=== PATIENT | male | born 2000 | race Caucasian/White ===

== ENCOUNTER → 2023-11-10 | Outpatient (CLI) | payer OTHER ==
--- NOTE | 2023-11-12 10:10 | US ---
EXAMINATION TYPE: US scrotum with doppler. Grayscale and color Doppler Duplex imaging performed of joão he scrotum. DATE OF EXAM: 11/10/2023 COMPARISON: NONE CLINICAL INDICATION: Male, 23 years old with history of N50.819 TESTICULAR PAIN, UNSPECIFI; Right issa in pain x 2 weeks; Patient denies any other signs or symptoms or relevant history. EXAM MEASUREMENTS: TESTICLES: Right Testicle: 4.4 x 1.8 x 2.9 cm Left Testicle: 4.7 x 2.1 x 3.3 cm EPIDIDYMIS HEAD: Right Epididymis: 1.2 cm Left Epididymis: 1.0 cm Doppler performed to assess for testicular vascularity; good bilateral color flow and waveforms are s een. There is no evidence of testicular torsion. Presence of hydroceles: No Presence of varicoceles: No Right inguinal area scanned due to patients concern - heterogenous striated tubular structure seen ex tending from patients palp to superior testicle / epididymal area. IMPRESSION: 1. Heterogenous striated structure in the region of the right inguinal region extending to the patien t's area of palpable concern is nonspecific. Consider CT correlation.
== END | disposition home or self-care (01) ==
LOC: RADUSWWP 12:23
PROVIDERS: ATTEND Family Medicine
DX: N50.819 Testicular pain, unspecified (principal)
CPT/HCPCS: 76870; 93975

== ENCOUNTER → 2023-11-26 | Outpatient (CLI) | payer OTHER ==
--- NOTE | 2023-11-26 23:01 | CT ---
EXAMINATION TYPE: CT pelvis w con DATE OF EXAM: 11/26/2023 HISTORY: prior abnormal us of the scrotum. prior in pacs Technique: Departmental protocol. Automated exposure control for dose reduction was used. CT DLP: 551.8 mGycm CONTRAST: Performed with IV Contrast, patient injected with 70ml mL of Isovue 300. COMPARISON: Scrotal Doppler ultrasound 11/10/2023 FINDINGS: The scrotal contents, right spermatic cord, and right inguinal canal have normal CT appearance. The inguinal canals have a symmetric appearance. The superficial and deep inguinal lymph node stations are negative. Intrapelvic soft tissues have normal appearance. The visualized skeletal structures and extrapelvic soft tissues have normal appearance. IMPRESSION: Negative examination.
== END | disposition home or self-care (01) ==
LOC: RADCTMAIN 17:11
PROVIDERS: ATTEND Family Medicine
DX: N50.89 Other specified disorders of the male genital organs (principal)
CPT/HCPCS: 72193; Q9967